=== PATIENT | female | born 1985 | race Caucasian/White ===

== ENCOUNTER 2018-01-12 07:16 | Inpatient (IN) | payer BC, MEDICAID ==
[2018-01-12] VITALS (23 sets, daily range): BP systolic 120–152; BP diastolic 57–85; PULSE 55–88; TEMP 97.4–99.3
[~2018-01-12] VITALS: Ht 165.1 cm; Wt 109.1 kg
[~2018-01-12 07:16] MED LIST: ALBUTEROL SULFAT8 MG; IRON325 M1; PRENATAL1 TA1; ZYRTEC 10MG10 MG PO
[2018-01-12 08:33] LABS: BASO % 0.6 % (0.0-2.0); EOS # 0.1 (0.0-0.7); GRAN # 2.8 (1.4-6.5); GRAN % 53.7 % (42.2-75.2); LYMPH # 1.5 (1.2-3.4); LYMPH % 28.1 % (20.0-51.0); MEAN CELL VOLUME 95 fl (80.0-100.0); MEAN CORPUSCULAR HGB CONC 33 g/dl (33.0-37.0); MEAN PLATELET VOLUME 12.3 fl (7.4-10.4); MONO # 0.8 (0.1-0.6); MONO % 15.5 % (1.7-9.3); PLATELET COUNT 156 K/mm3 (130-400); RED BLOOD COUNT 3.46 M/mm3 (4.10-5.30); REDCELL DISTRIBUTION WIDTH-CV 12.5 % (11.5-14.5)
[2018-01-12 08:34] LABS: HEMATOCRIT 32.9 % (37.0-47.0); MEAN CORPUSCULAR HEMOGLOBIN 32 pg (27.0-31.0)
[2018-01-13 01:00] VITALS: BP 129/74; PULSE 64; TEMP 97.6
[2018-01-13 04:40] VITALS: BP 133/76; PULSE 69; TEMP 97.6
[2018-01-13 08:36] VITALS: BP 126/70; PULSE 69; TEMP 97.9
[2018-01-13 15:56] VITALS: BP 116/78; PULSE 74; TEMP 98.8
[2018-01-13 20:00] VITALS: BP 144/83; PULSE 69; TEMP 98.1
[2018-01-14 00:01] VITALS: BP 137/78; PULSE 72; TEMP 98.2
[2018-01-14 07:45] VITALS: BP 135/77; PULSE 65; TEMP 98.2
[2018-01-14] MEDS ORDERED: IBU800 M1 PO (08:50)
== END 2018-01-14 14:45 | disposition home or self-care (01) | DRG 775 ==
LOC: LDRO 07:16 → LDR 07:20 → OB 07:20
PROVIDERS: Obstetrics & Gynecology
PROC: 10E0XZZ Delivery of Products of Conception, External Approach (ICD-10-PCS; principal; 2018-01-12)
DX: O99.52 Diseases of the respiratory system complicating childbirth (principal); J10.1 Influenza due to other identified influenza virus with other respiratory manifestations; Z3A.38 38 weeks gestation of pregnancy; Z37.0 Single live birth
CPT/HCPCS: J0595; J2590; J7120

== ENCOUNTER 2018-01-21 21:46 | Emergency (ER) | payer BC, MEDICAID ==
[~2018-01-21] VITALS: Wt 92.3 kg
[~2018-01-21 21:46] MED LIST changes: +IBU800 M1 PO
[2018-01-21 21:49] VITALS: BP 138/81; TEMP 99.5
[2018-01-21] MEDS ORDERED: HCTZ 25MG TAB25 MG PO (23:03)
[2018-01-21] MEDS ORDERED: K-DUR20 MEQ PO (23:04)
[2018-01-21] MEDS ORDERED: TYLENOL 500MG500 MG PO (23:05)
[2018-01-21] MEDS ORDERED: CLEOCIN HCL300 MG PO ×3 (23:09→23:22)
[2018-01-22 00:08] VITALS: PULSE 89
[2018-01-22] MEDS ORDERED: CLEOCIN HCL300 MG PO (00:08)
== END 2018-01-22 00:08 | disposition home or self-care (01) ==
LOC: COL.ER 21:46
DX: O86.12 Endometritis following delivery (principal); Z87.442 Personal history of urinary calculi
CPT/HCPCS: J7120

== ENCOUNTER → 2023-01-03 | Outpatient (REF) ==
[~2023-01-03] MED LIST changes: +CLEOCIN HCL300 MG PO; +HCTZ 25MG TAB25 MG PO; +K-DUR20 MEQ PO; +TYLENOL 500MG500 MG PO
== END ==
LOC: COL.CARD 08:22
DX: R00.2 Palpitations (principal)